=== PATIENT | male | born 1995 | race Caucasian/White ===

== ENCOUNTER → 2020-03-03 | Outpatient (CLI) | payer BC ==
[2020-03-03 13:10] LABS: SEMEN VOLUME 5.5 ML (1.5-5.0)
== END ==
LOC: LAB 11:34
PROVIDERS: ATTEND Urology
DX: N46.9 Male infertility, unspecified (principal)
CPT/HCPCS: 89320

== ENCOUNTER → 2020-03-15 | Outpatient (CLI) | payer BC ==
--- NOTE | 2020-03-15 12:43 | Diagnostic Imaging Report ---
PROCEDURE: US Scrotum. TECHNIQUE: Multiple Real-time grayscale images were obtained over the scrotum in various projections bilaterally. INDICATION: Infertility. FINDINGS: The right testicle measures 4.2 x 2.0 x 2.5 cm and the left testicle measures 4.1 x 2.2 x 2.6 cm. Both testes demonstrate fairly homogeneous echotexture. No noncalcified testicular mass is seen. There is a tiny calcification in the right testicle measuring 3 mm in size. There is blood flow to both testes. The epididymides demonstrate a right epididymal head cyst measuring 7 mm x 6 mm. The left epididymis is unremarkable. No hydrocele is identified. There appears to be a small varicocele lateral to the left testicle. IMPRESSION: 1. No evidence of noncalcified testicular mass or vascular compromise. 2. Small right epididymal head cyst. 3. Small left varicocele. Dictated by: Dictated on workstation # [id number]
== END ==
LOC: RAD 11:22
PROVIDERS: ATTEND Urology
DX: N46.9 Male infertility, unspecified (principal); N50.3 Cyst of epididymis; I86.1 Scrotal varices
CPT/HCPCS: 76870

== ENCOUNTER 2020-08-20 09:09 | Outpatient (RCR) | payer BC, OTHER ==
[2020-08-20 11:09] LABS: SEMEN VOLUME 3.6 ML (1.5-5.0)
== END 2020-11-18 | disposition home or self-care (01) ==
LOC: EDSTATUS 09:09 → LAB 09:09
PROVIDERS: ATTEND Urology
DX: N46.9 Male infertility, unspecified (principal)
CPT/HCPCS: 89320

== ENCOUNTER 2020-11-26 12:30 | Outpatient (RCR) | payer OTHER | END 2021-02-24 | disposition home or self-care (01) | LOC: LAB 12:30 → EDSTATUS 12:32 → LAB 12:32 | PROVIDERS: ATTEND Urology | DX: N46.9 Male infertility, unspecified (principal); I86.1 Scrotal varices | CPT/HCPCS: 89320 ==